=== PATIENT | female | born 1990 | race Caucasian/White ===

== ENCOUNTER → 2023-06-05 06:32 | Day surgery (SDC) | payer BC, SELFPAY | LOC: GI 06:32 | PROVIDERS: ATTENDING PHYSICIAN Specialist; FAMILY PHYSICIAN Physician Assistant Medical | DX: D12.3 Benign neoplasm of transverse colon (principal); R10.84 Generalized abdominal pain; R93.3 Abnormal findings on diagnostic imaging of other parts of digestive tract | CPT/HCPCS: 45385; 45380; 88305 ==

== ENCOUNTER → 2023-09-15 12:42 | Outpatient (REF) | payer BC, SELFPAY | LOC: HWRAD 12:42 | PROVIDERS: ATTENDING PHYSICIAN Nurse Practitioner Adult Health; FAMILY PHYSICIAN Physician Assistant Medical | DX: N88.8 Other specified noninflammatory disorders of cervix uteri (principal); Z80.41 Family history of malignant neoplasm of ovary | CPT/HCPCS: 76830; 76856 ==